=== PATIENT | male | born 1970 | race Caucasian/White ===

== ENCOUNTER 2022-11-28 04:48 | Emergency (ER) | payer OTHER, SELFPAY ==
[2022-11-28 04:52] VITALS: BP 151/96; PULSE 63; RESP 16; TEMP 36.4; O2SAT 99; BMI 26.6
--- NOTE | 2022-11-28 04:59 | XR_ITS ---
The [address] [address] Patient Name: ELZA KOWALSKI MRN: [id number] date: 1970 Sex: M Assigned Patient Location: ER Current Patient Location: ED.MAIN Accession/Order Number: [id number] Exam Date: 11/28/2022 05:05 Report Date: 11/28/2022 05:51 At the request of: HA GRAY Procedure: XR hand RT 2V EXAM: XR hand RT 2V HISTORY: pain thumb COMPARISON: None. TECHNIQUE: 2 views of the right hand were obtained. FINDINGS: There are postsurgical changes of the right second finger middle phalangeal base with 2 partially-threaded screws in place. No acute fracture or dislocation is seen. The joint spaces are preserved. XR/XR hand RT 2V IMPRESSION: 1. No acute fracture or dislocation of the right hand or fingers is seen. If pain persists, repeat radiographs are recommended in 7-10 days. Electronically authenticated by: Lisa QUARLES Date: 11/28/2022 05:51
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
[2022-11-28] MEDS: IBUPROFEN 600 MG TABLET PO (05:54)
== END 2022-11-28 06:08 | disposition home or self-care (01) ==
PROVIDERS: Emergency Provider Emergency Medicine
DX: M77.9 Enthesopathy, unspecified (principal); F17.210 Nicotine dependence, cigarettes, uncomplicated
CPT/HCPCS: 73120; 99283

== ENCOUNTER 2023-12-06 22:36 | Emergency (ER) | payer OTHER, SELFPAY ==
[2023-12-06 22:54] VITALS: BP 133/82; PULSE 80; TEMP 36.7; O2SAT 96; BMI 27.4
--- NOTE | 2023-12-06 23:05 | XR_ITS ---
The [address] [address] Patient Name: ELZA KOWALSKI MRN: [id number] date: 1970 Sex: M Assigned Patient Location: ER Current Patient Location: ER Accession/Order Number: [id number] Exam Date: 12/06/2023 23:20 Report Date: 12/07/2023 01:03 At the request of: JIMMY BOOTH Procedure: XR foot RT min 3V EXAM: XR foot RT min 3V, XR ankle RT min 3V HISTORY: The patient is a 53-year-old male, pain, fall COMPARISON: None. FINDINGS: The right foot is radiographically negative with no evidence of fracture, dislocation, joint space narrowing, osteophytes, or other osseous or articular abnormalities. No acute or ununited fractures are seen within or around the ankle joint. The ankle mortise is intact and uniform. The syndesmosis is maintained. No soft tissue swelling is seen. XR/XR foot RT min 3V IMPRESSION: Negative right foot and right ankle. Electronically authenticated by: LILLIAN MOLINA Date: 12/07/2023 01:03
--- NOTE | 2023-12-06 23:05 | XR_ITS ---
The [address] [address] Patient Name: ELZA KOWALSKI MRN: [id number] date: 1970 Sex: M Assigned Patient Location: ER Current Patient Location: ER Accession/Order Number: [id number] Exam Date: 12/06/2023 23:20 Report Date: 12/07/2023 01:03 At the request of: JIMMY BOOTH Procedure: XR ankle RT min 3V EXAM: XR foot RT min 3V, XR ankle RT min 3V HISTORY: The patient is a 53-year-old male, pain, fall COMPARISON: None. FINDINGS: The right foot is radiographically negative with no evidence of fracture, dislocation, joint space narrowing, osteophytes, or other osseous or articular abnormalities. No acute or ununited fractures are seen within or around the ankle joint. The ankle mortise is intact and uniform. The syndesmosis is maintained. No soft tissue swelling is seen. XR/XR ankle RT min 3V IMPRESSION: Negative right foot and right ankle. Electronically authenticated by: LILLIAN MOLINA Date: 12/07/2023 01:03
--- NOTE | 2023-12-07 02:04 | ED.GENADUL1 ---
HPI HPI - General Adult General Chief complaint: Extremity Injury, Lower Stated complaint: Lower Extremity Injury Time Seen by Provider: 12/06/23 22:57 Source: patient Mode of arrival: walk-in History of Present Illness HPI narrative: 53-year-old male to the emergency department with chief complaint of injury to his right ankle. Patient reports that he was feeding some goats from a wagon and slipped and fell funny onto his right ankle. He is able to walk on it. Took some Tylenol and ibuprofen with mild relief of symptoms. Has a relative who is an EMT who told him he should get this looked at with some x-rays. Denies any other injuries. Did not hit his head or lose consciousness. Denies any neck or back pain. Related Data Previous Rx's ?Medication ?Instructions ?Recorded ibuprofen 600 mg tablet 600 mg PO Q8H PRN pain #20 tabs 11/28/22 ibuprofen 800 mg tablet 800 mg PO Q8H PRN pain #20 tabs 12/07/23 Allergies Allergy/AdvReac Type Severity Reaction Status Date / Time No Known Drug Allergies Allergy Verified 11/28/22 04:58 Opioid HPI Opioid Management Most Recent Opioid Data: Last Pain Scale 8 12/06/23 23:13 Last ED Pain Assessment 12/06/23 23:13 Review of Systems ROS Status of ROS 10 or more systems reviewed and unremarkable except as noted in history and below [facility] PFS Social History Smoking status: Current every day smoker Exam Narrative Exam Narrative: VITALS: I have reviewed the triage vital signs. GENERAL: Well developed, well appearing adult in no acute distress. NEURO: Alert and oriented. Moves all extremities. Face is symmetric and expressive. EYES: PERRL. No scleral icterus or conjunctival injection. No discharge. HENT: Normocephalic, atraumatic. Hearing is grossly intact. Nares grossly patent and without discharge. Mucous membranes moist. NECK: No JVD. Patient moves neck without restriction. No midline cervical, thoracic, or lumbar tenderness. Right lower Extremity: DP and PT pulses intact. Limb is similar color and temperature to the contralateral limb. Compartments soft. No swelling. Mild lateral foot ecchymosis. No medial malleolus tenderness. Positive lateral malleolus tenderness. Positive tenderness at the base of the fifth metatarsal. No midfoot tenderness. No fibular head tenderness. Able to bear weight with arches maintained. Sensation is intact over the foot and lower leg. Dorsiflexion/plantar flexion, knee flexion/extension, hip flexion/extension are grossly intact by strength testing. SKIN: Warm and dry. Normal turgor. No rash or lesions appreciated. PSYCH: Mood, affect, and interaction is appropriate to the setting. Constitutional Vital Signs, click to edit/add: Last Vital Signs Temp 98.0 F 12/06/23 22:54 Pulse 80 12/06/23 22:54 Resp 16 12/06/23 22:54 BP 133/82 12/06/23 22:54 Pulse Ox 96 12/06/23 22:54 O2 Del Method Room Air 12/06/23 22:54 Course Vital Signs Vital signs: Vital Signs Temperature 98.0 F 12/06/23 22:54 Pulse Rate 80 12/06/23 22:54 Respiratory Rate 16 12/06/23 22:54 Blood Pressure 133/82 12/06/23 22:54 Pulse Oximetry 96 12/06/23 22:54 Oxygen Delivery Method Room Air 12/06/23 22:54 Temperature 98.0 F 12/06/23 22:54 Pulse Rate 80 12/06/23 22:54 Respiratory Rate 16 12/06/23 22:54 Blood Pressure 133/82 12/06/23 22:54 Pulse Oximetry 96 12/06/23 22:54 Oxygen Delivery Method Room Air 12/06/23 22:54 Medical Decision Making MDM Narrative Medical decision making narrative: Right lower extremity is neurovascularly intact. Mild tenderness laterally across the foot and the ankle. X-ray imaging is ordered. He declines any pain medication. X-rays without acute findings. RICE therapy. I offered Louis wrap and patient stated I don't fucking need that, get me the fuck out of here . Return precautions were discussed. All questions were answered. He was given podiatry follow-up should he continue to have discomfort. Patient was discharged home. Medical Records Medical records reviewed: Yes I reviewed the patient's medical records Imaging Data Lower extremity x-rays: Radiologist's impression: ITS Impressions Ankle X-Ray 12/06/23 23:05 IMPRESSION: Negative right foot and right ankle. Electronically authenticated by: LILLIAN MOLINA Date: 12/07/2023 01:03 Foot X-Ray 12/06/23 23:05 IMPRESSION: Negative right foot and right ankle. Electronically authenticated by: LILLIAN JESSE Date: 12/07/2023 01:03 Discharge Plan Discharge Stand Alone Forms: Work/School Release, Portal Instructions Chief Complaint: Extremity Injury, Lower Clinical Impression: Ankle sprain Patient Disposition: Home, Self-Care Time of Disposition Decision: 01:12 Condition: Good Mode of Transportation: Private Vehicle Prescriptions / Home Meds: New ibuprofen 800 mg tablet 800 mg PO Q8H PRN (Reason: pain) Qty: 20 0RF No Action ibuprofen 600 mg tablet 600 mg PO Q8H PRN (Reason: pain) Qty: 20 0RF Print Language: Portuguese Instructions: Ankle Sprain (ED), P.R.I.C.E. Treatment (ED) Additional Instructions: Call the office of your primary care doctor to arrange for follow-up within the above-stated timeframe. Your ED visit was focused on your acute issue and does not replace primary care. You should review your labs, imaging, and diagnoses from this ED visit with your primary care physician. There may be non-emergent/ incidental findings that need further evaluation. You should review your vital signs including blood pressure with your PCP. If you were prescribed medications you should discuss possible side-effects and drug interactions with your pharmacist. Call 911 or go to the nearest Emergency Department if you develop any new or worsening symptoms. Referrals: Physician,Non-Staff, [Primary Care Provider] - 1 week Francis Venegas DPM [Physician] - 1 week Discharge Date/Time: 12/07/23 01:19
== END 2023-12-07 01:19 | disposition home or self-care (01) ==
PROVIDERS: Emergency Provider Student in an Organized Health Care Education/Training Program
DX: S93.401A Sprain of unspecified ligament of right ankle, initial encounter (principal); F17.200 Nicotine dependence, unspecified, uncomplicated; W17.89XA Other fall from one level to another, initial encounter
CPT/HCPCS: 73610; 73630; 99284

== ENCOUNTER 2024-05-29 15:36 | Emergency (ER) | payer OTHER, SELFPAY ==
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
[2024-05-29 15:43] VITALS: BP 163/100; PULSE 78; TEMP 36.3; O2SAT 98; BMI 27.4
[2024-05-29] MEDS: LIDOCAINE HCL 1% 100 MG/10 ML MDV INJ (16:16)
--- NOTE | 2024-05-29 16:31 | ED.WOUNDLAC1 ---
HPI - Wound/Laceration General Chief Complaint: Wound/Laceration Stated Complaint: FINGER LACERATION Time Seen by Provider: 05/29/24 16:09 Source: patient Mode of arrival: walk-in Limitations: no limitations History of Present Illness HPI narrative: 54-year-old male presents to the emergency department for a chief complaint of laceration to his right index finger. This was sustained just before coming into the emergency department when he was on a ladder and he started sliding down and a screw cut his right index finger at the DIP joint on the radial side. No other injury was sustained. He has had previous surgery on that finger and states he has screws in it and that there was an injury that resulted in nerve damage. Related Data Previous Rx's ?Medication ?Instructions ?Recorded ibuprofen 600 mg tablet 600 mg PO Q8H PRN pain #20 tabs 11/28/22 Allergies Allergy/AdvReac Type Severity Reaction Status Date / Time No Known Drug Allergies Allergy Verified 05/29/24 15:43 Review of Systems ROS Narrative A ten point review of systems is negative except as noted above. PFSH PFSH Social History Smoking status: Current every day smoker Little interest or pleasure in doing things: not at all Feeling down, depressed, or hopeless: not at all Exam Narrative Exam Narrative: Nurses note and vital signs reviewed and patient is not hypoxic. General: The patient appears well and in no apparent distress. Patient is resting comfortably on cart. Skin: Warm, dry, no pallor noted. There is no rash noted. Head: Normocephalic, atraumatic Eye: Normal conjunctiva, no drainage Ears, Nose, Mouth, and Throat: oral mucosa is moist. Nares patent. Cardiovascular: Regular Rate and Rhythm Respiratory: Patient is in no distress, no accessory muscle use Back: non-tender GI: Soft and nontender Musculoskeletal: 1 cm laceration present on the right index finger on the radial side of his DIP area. DIP and PIP have good range of motion. No other wounds are present. No active bleeding. Neurological: A&O, normal speech Psychiatric: Cooperative Constitutional Vital Signs, click to edit/add: Last Vital Signs Temp 97.4 F L 05/29/24 15:43 Pulse 78 05/29/24 15:43 Resp 18 05/29/24 15:43 BP 163/100 H 05/29/24 15:43 Pulse Ox 98 05/29/24 15:43 O2 Del Method Room Air 05/29/24 15:43 Course Vital Signs Vital signs: Vital Signs Temperature 97.4 F L 05/29/24 15:43 Pulse Rate 78 05/29/24 15:43 Respiratory Rate 18 05/29/24 15:43 Blood Pressure 163/100 H 05/29/24 15:43 Pulse Oximetry 98 05/29/24 15:43 Oxygen Delivery Method Room Air 05/29/24 15:43 Temperature 97.4 F L 05/29/24 15:43 Pulse Rate 78 05/29/24 15:43 Respiratory Rate 18 05/29/24 15:43 Blood Pressure 163/100 H 05/29/24 15:43 Pulse Oximetry 98 05/29/24 15:43 Oxygen Delivery Method Room Air 05/29/24 15:43 MDM - Wound/Laceration MDM Narrative Medical decision making narrative: The following procedure was performed by me. Finger block applied with 1% lidocaine without epinephrine resulting in complete skin anesthesia. The area was prepped with Betadine x 3 and draped sterilely. It was explored for foreign bodies and none were found. The wound was then closed with two 5-0 Ethilon sutures resulting in good skin reapproximation and no complications in complete hemostasis. Sutures are to be removed in a week. Splint applied, application checked by me and found to be appropriate, he is neurovascular intact. I have no suspicion of neurologic or tendon injury. Treatment diagnosis and follow-up were discussed with the patient. Differential Diagnosis Differential diagnosis: Likely laceration and avulsion of skin Discharge Plan Discharge Chief Complaint: Wound/Laceration Clinical Impression: Laceration of right index finger Patient Disposition: Home, Self-Care Time of Disposition Decision: 16:29 Condition: Good Mode of Transportation: Private Vehicle Prescriptions / Home Meds: No Action ibuprofen 600 mg tablet 600 mg PO Q8H PRN (Reason: pain) Qty: 20 0RF Print Language: Greek Instructions: Finger Laceration (ED) Additional Instructions: Stitches to be removed in a week Referrals: Physician,Non-Staff, MD [Primary Care Provider] - 1 week
[2024-05-29] MEDS: ADACEL DIPH,PERTUSS(ACELL),TET VAC/PF 0.5 ML ADULT SYRINGE IM (16:49)
== END 2024-05-29 16:53 | disposition home or self-care (01) ==
PROVIDERS: Emergency Provider Emergency Medicine
DX: S61.210A Laceration without foreign body of right index finger without damage to nail, initial encounter (principal); W26.8XXA Contact with other sharp object(s), not elsewhere classified, initial encounter; Z23 Encounter for immunization
CPT/HCPCS: 12001; 90471; 90715; 99283

== ENCOUNTER 2025-04-10 16:27 | Emergency (ER) | payer OTHER, SELFPAY ==
[2025-04-10 17:09] VITALS: BP 175/92; PULSE 83; TEMP 36.5; O2SAT 98; BMI 25.5
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
--- OUTSIDE RECORDS SUMMARY | 2025-04-10 17:35 | XMS_ITS | Clinical Summary ---
Author Organization [facility] tem Address [id number] [address] [place] [address] Care Team Providers Care Wharfinger Chief Name Role Phone Unavailable Primary Care Provider Unavailabl e Social History Tobacco UseTypesPacks/DayYears UsedDateSmoking Tobacco: Never AssessedChildcare AnswerDate EkdxaufkDewrzjhanZrdjnha29/12/2019EmploymentAnswerDate Recorded WzszlcdhcsNwwkyqz52/12/2019Sex and Gender InformationValueDate RecordedSex Assigned at BirthNot on fileLegal QsgNgbe8211/17/2014 11:26 AM EDTGender Identity Not on fileSexual OrientationNot on file Plan of Treatment Not on file Medical Devices Not on file
[2025-04-10] MEDS: SULFAMETHOXAZOLE/TRIMETHOPRIM 800-160 MG TABLET 1 TAB PO (18:02)
[2025-04-10] MEDS: CEPHALEXIN 500 MG CAPSULE PO (18:02)
[2025-04-10 18:08] VITALS: BP 168/70; PULSE 82; O2SAT 95
--- NOTE | 2025-04-10 19:53 | ED.GENADUL1 ---
HPI HPI - General Adult General Chief complaint: Skin/Abscess/Foreign Body Stated complaint: RIGHT HAND POINTER FINGER SWOLLEN Time Seen by Provider: 04/10/25 16:41 Source: patient Mode of arrival: walk-in Limitations: no limitations History of Present Illness HPI narrative: Patient is a 54-year-old male presenting to the emergency department for evaluation of right index finger pain. The patient states he is healthy with no chronic medical conditions. He states he had prior surgery to the right index finger with screws many years ago. He states that over the last for 8 hours he has been having pain, swelling, and redness at the tip of his index finger. He states he has limited range of motion secondary to the pain. He denies fevers or chills. Denies history of diabetes. No chest pain or shortness of breath. No numbness/tingling/weakness in the hand. Denies injuries to the finger. Related Data Previous Rx's ?Medication ?Instructions ?Recorded ibuprofen 600 mg tablet 600 mg PO Q8H PRN pain #20 tabs 11/28/22 cephalexin 500 mg capsule 500 mg PO BID 10 days #20 caps 04/10/25 sulfamethoxazole 800 1 tab PO BID 10 days #20 tabs 04/10/25 mg-trimethoprim 160 mg tablet (Bactrim DS) Allergies Allergy/AdvReac Type Severity Reaction Status Date / Time No Known Drug Allergies Allergy Verified 04/10/25 17:09 Opioid HPI Opioid Management Most Recent Opioid Data: Last Pain Scale 8 Today, 17:09 Review of Systems ROS Status of ROS 10 or more systems reviewed and unremarkable except as noted in history and below PFSH PFSH Social History Smoking status: Current every day smoker Little interest or pleasure in doing things: not at all Feeling down, depressed, or hopeless: not at all Exam Narrative Exam Narrative: CONSTITUTIONAL: Well-appearing, answering questions and following commands appropriately SKIN: Was warm and dry. EYES: Sclerae white. EARS, NOSE, THROAT: Moist oral mucosa. RESPIRATORY: Nonlabored respirations CARDIOVASCULAR: Normal rate and regular rhythm. Cap refill less than 2 seconds of the right index finger. Fingers warm and well-perfused GASTROINTESTINAL: Abdomen is nondistended. MUSCULOSKELETAL: The right index finger has mild amount of soft tissue swelling, mild erythema, and tenderness to palpation from the PIP distally. There is no circumferential swelling. No sausage finger . The finger is not held in passive flexion. There is no tenderness along the flexor tendon sheath. There is no pain with passive extension of the finger. There is no obvious paronychia or felon. No crepitus. No bulla. No purulent drainage. Limited range of motion with finger flexion/extension secondary to swelling/pain. NEUROLOGIC: Patient is awake and alert. Sensation intact to light touch throughout the right index finger. Constitutional Vital Signs, click to edit/add: Last Vital Signs Temp 97.7 F 04/10/25 17:09 Pulse 82 04/10/25 18:08 Resp 16 04/10/25 18:08 BP 168/70 H 04/10/25 18:08 Pulse Ox 95 04/10/25 18:08 O2 Del Method Room Air 04/10/25 18:08 Course Vital Signs Vital signs: Vital Signs Temperature 97.7 F 04/10/25 17:09 Pulse Rate 83 04/10/25 17:09 Respiratory Rate 18 04/10/25 17:09 Blood Pressure 175/92 H 04/10/25 17:09 Pulse Oximetry 98 04/10/25 17:09 Oxygen Delivery Method Room Air 04/10/25 17:09 Temperature 97.7 F 04/10/25 17:09 Pulse Rate 82 04/10/25 18:08 Respiratory Rate 16 04/10/25 18:08 Blood Pressure 168/70 H 04/10/25 18:08 Pulse Oximetry 95 04/10/25 18:08 Oxygen Delivery Method Room Air 04/10/25 18:08 Medical Decision Making MDM Narrative Medical decision making narrative: Patient is a 54-year-old male, denies any chronic medical conditions, presenting to the emergency department for evaluation of right index finger pain and swelling over the last 2 days. His vital signs on arrival are significant for hypertension, otherwise were within normal limits. He is afebrile and hemodynamically stable. Examination of the finger as noted above. The finger is neurovascularly intact with good distal perfusion and sensation. X-rays of the right index finger independently reviewed by myself demonstrated no acute osseous abnormalities. My clinical impression is that patient's presentation is related to mild soft tissue infection/cellulitis. Examination is not consistent with flexor tenosynovitis. No area of fluctuance to suggest a drainable felon or paronychia. I do believe the patient is stable for discharge. They were instructed to follow up with our on-call orthopedic surgeon for further care. Return precautions were given including any new or worsening symptoms. They were given a prescription for Keflex and Bactrim. Patient understands and agrees to the plan. FINAL IMPRESSION: #Acute right index finger infection, possible cellulitis DISPOSITION: Discharged home CONDITION: Good Imaging Data finger xray: Attestation: I personally reviewed and interpreted this imaging study as follows: Radiologist's impression: ITS Impressions Finger X-Ray 04/10/25 17:26 IMPRESSION: Mildly avulsed fracture proximal posterior corner distal phalanx. Mallet finger injury Impression dictated by: Liam Crockett M.D. 04/10/2025 6:11 PM Dictation Location: [facility] Electronically authenticated by: [id number] Y Date: 04/10/2025 18:11 Discharge Plan Discharge Chief Complaint: Skin/Abscess/Foreign Body Clinical Impression: Cellulitis Patient Disposition: Home, Self-Care Time of Disposition Decision: 17:51 Condition: Good Mode of Transportation: Private Vehicle Prescriptions / Home Meds: New sulfamethoxazole-trimethoprim [Bactrim DS] 800-160 mg tablet 1 tab PO BID 10 Days Qty: 20 0RF cephalexin 500 mg capsule 500 mg PO BID 10 Days Qty: 20 0RF No Action ibuprofen 600 mg tablet 600 mg PO Q8H PRN (Reason: pain) Qty: 20 0RF Print Language: [place] Island[place] Instructions: Cellulitis (ED) Referrals: Dennis Hathaway DO [Physician, Orthopedics] - As soon as possible Physician,Non-Staff, MD [Primary Care Provider] - 1 week Discharge Date/Time: 04/10/25 18:12
== END 2025-04-10 18:12 | disposition home or self-care (01) ==
PROVIDERS: Emergency Provider Student in an Organized Health Care Education/Training Program
DX: S62.630A Displaced fracture of distal phalanx of right index finger, initial encounter for closed fracture (principal); L03.011 Cellulitis of right finger; X58.XXXA Exposure to other specified factors, initial encounter; F17.200 Nicotine dependence, unspecified, uncomplicated
CPT/HCPCS: 73140; 99283